=== PATIENT | female | born 1930 | race Caucasian/White ===

== ENCOUNTER → 2017-07-29 | Outpatient (CLI) | payer MEDICARE, BC | LOC: COL.RAD 10:24 | DX: K76.89 Other specified diseases of liver (principal); Z90.49 Acquired absence of other specified parts of digestive tract ==

== ENCOUNTER → 2017-08-10 | Outpatient (CLI) | payer MEDICARE, BC | LOC: COL.RAD 07:57 | DX: R04.2 Hemoptysis (principal); Q18.1 Preauricular sinus and cyst | CPT/HCPCS: Q9967 ==

== ENCOUNTER → 2017-09-09 | Outpatient (CLI) | payer MEDICARE, BC ==
[~2017-09-09] MED LIST: ALDACTONE 25MG25 M1 PO; ALMACONE 360 M360 ML PO; CLARITIN 1010 MG/TAB PO; COLACE 100100 MG/CAP PO; COREG 3.123.125 MG/T PO; COUMADIN 2MG2 MG/TAB PO; CYMBALTA 20MG20 MG PO; DIPROSONE CR 45GM TP; DOXYCYCLINE 10100 MG PO; FENTANYL 75MCG TD; GOOD NEIGH1200 MG/15; LANOXIN 0.120.125 MG PO; LASIX 40MG TABL40 MG PO; NAMENDA XR 28MG PO; OMNICEF 300MG300 MG PO; PRAVACHOL 20MG20 MG PO; SYNTHROID0.05 MG/TA PO; SYSTANE BALANCE10 M1 OU; TYLENOL 325MG325 MG PO; TYLENOL 500MG500 MG PO; ULTRAM 50MG TAB50 MG PO; XANAX .25M0.25 MG/TA PO; ZANTAC 300300 MG PO; ZOFRAN 4MG T4 MG/TAB PO; [UNRECOGNIZED DRUG - OTHER] TP
== END ==
LOC: COL.RAD 07:09
DX: Z53.8 Procedure and treatment not carried out for other reasons (principal); C34.11 Malignant neoplasm of upper lobe, right bronchus or lung

== ENCOUNTER 2017-09-27 09:38 | Day surgery (SDC) | payer MEDICARE, BC ==
[~2017-09-27] VITALS: Ht 149.9 cm; Wt 55.9 kg
[2017-09-27] VITALS (12 sets, daily range): BP systolic 122–164; BP diastolic 64–90; PULSE 81–102
[2017-09-27] MEDS ORDERED: CEPHALEXIN500 M1 PO (13:09)
== END 2017-09-27 16:45 ==
LOC: COL.VAS 09:38 → COL.CAR 09:45 → COL.VAS 16:45
DX: Z45.02 Encounter for adjustment and management of automatic implantable cardiac defibrillator (principal); I25.5 Ischemic cardiomyopathy; I11.0 Hypertensive heart disease with heart failure; I50.9 Heart failure, unspecified; I25.10 Atherosclerotic heart disease of native coronary artery without angina pectoris; Z95.1 Presence of aortocoronary bypass graft; I44.7 Left bundle-branch block, unspecified; I08.1 Rheumatic disorders of both mitral and tricuspid valves; F03.90 Unspecified dementia, unspecified severity, without behavioral disturbance, psychotic disturbance, mood disturbance, and anxiety; E78.5 Hyperlipidemia, unspecified; I27.20 Pulmonary hypertension, unspecified; Z85.9 Personal history of malignant neoplasm, unspecified; Z80.9 Family history of malignant neoplasm, unspecified; Z87.891 Personal history of nicotine dependence; Z79.01 Long term (current) use of anticoagulants; Z79.899 Other long term (current) drug therapy
CPT/HCPCS: C1882; J0690; J2250; J3010; J7030

== ENCOUNTER 2017-09-28 19:40 | Emergency (ER) | payer MEDICARE, BC ==
[~2017-09-28] VITALS: Ht 149.9 cm; Wt 57.3 kg
[~2017-09-28 19:40] MED LIST changes: +CEPHALEXIN500 M1 PO
[2017-09-28 19:59] VITALS: TEMP 99.9
[2017-09-28 20:17] LABS: BASO % 0.3 % (0.0-2.0); EOS # 0.2 (0.0-0.7); EOS % 1.9 % (0-4.0); GRAN # 10.2 (1.4-6.5); HEMOGLOBIN 10.8 g/dl (12.5-16.0); LYMPH # 0.5 (1.2-3.4); MEAN CELL VOLUME 89 fl (80.0-100.0); MEAN CORPUSCULAR HEMOGLOBIN 29 pg (27.0-31.0); MEAN CORPUSCULAR HGB CONC 33 g/dl (33.0-37.0); MEAN PLATELET VOLUME 8.6 fl (7.4-10.4); MONO # 0.8 (0.1-0.6); PLATELET COUNT 238 K/mm3 (130-400); RED BLOOD COUNT 3.72 M/mm3 (4.10-5.30); REDCELL DISTRIBUTION WIDTH-CV 13.9 % (11.5-14.5)
[2017-09-28 20:27] LABS: HEMATOCRIT 33.1 % (37.0-47.0)
[2017-09-28 20:27] LABS: ALBUMIN 3.3 gm/dL (3.5-5.0); BILIRUBIN,TOTAL 1.3 mg/dL (0.0-1.0); CALCIUM 8.7 mg/dL (8.4-10.2); CREATININE, serum 0.83 mg/dL (0.52-1.25); POTASSIUM 3.8 mmol/L (3.4-5.0); TOTAL PROTEIN 6.8 gm/dL (6.4-8.2)
[2017-09-28 20:40] LABS: COLLECTION METHOD CLEAN CATCH
[2017-09-28 20:50] LABS: HYALINE CAST >12 /lpf; MUCOUS Present /lpf; PH 5 (5-8); SQUAMOUS EPITHELIAL 0-2 /hpf; URINE APPEARANCE Clear; URINE BACTERIA Rare /hpf; URINE BILIRUBIN Negative (NEGATIVE); URINE BLOOD 1+ (NEGATIVE); URINE COLOR Yellow; URINE GLUCOSE Negative (NEGATIVE); URINE KETONE Negative (NEGATIVE); URINE LEUKOCYTE ESTERASE Negative (NEGATIVE); URINE NITRATE Negative (NEGATIVE); URINE PROTEIN(semi-quant) Negative (NEGATIVE); URINE RBC 0-2 /hpf; URINE UROBILINOGEN Negative (NEGATIVE)
[2017-09-28 21:57] LABS: INR 3.3 (0.8-3.0); PROTHROMBIN TIME 37.8 SECONDS (9.7-12.8)
[2017-09-29 00:30] VITALS: BP 106/40; PULSE 80
== END 2017-09-29 00:35 | disposition short-term general hospital (02) ==
LOC: COL.ER 19:40
PROVIDERS: Family Medicine
DX: R50.9 Fever, unspecified (principal); I48.91 Unspecified atrial fibrillation; Z79.01 Long term (current) use of anticoagulants; Z85.118 Personal history of other malignant neoplasm of bronchus and lung; Z95.0 Presence of cardiac pacemaker
CPT/HCPCS: J2060; J2185; J3370; J7030; J7050

== ENCOUNTER → 2018-01-29 | Outpatient (CLI) | payer MEDICARE, BC ==
[2018-01-29 13:28] LABS: COLLECTION METHOD CLEAN CATCH
[2018-01-29 13:34] LABS: MUCOUS Present /lpf; PH 6 (5-8); SQUAMOUS EPITHELIAL 0-2 /hpf; URINE APPEARANCE Clear; URINE BACTERIA Rare /hpf; URINE BILIRUBIN Negative (NEGATIVE); URINE BLOOD Negative (NEGATIVE); URINE COLOR Yellow; URINE GLUCOSE Negative (NEGATIVE); URINE KETONE Negative (NEGATIVE); URINE LEUKOCYTE ESTERASE Negative (NEGATIVE); URINE NITRATE Negative (NEGATIVE); URINE PROTEIN(semi-quant) 1+ (NEGATIVE); URINE RBC 0-2 /hpf; URINE UROBILINOGEN Negative (NEGATIVE)
== END ==
LOC: ZCOL.LAB 12:58
PROVIDERS: Nurse Practitioner Family
DX: N39.0 Urinary tract infection, site not specified (principal)